=== PATIENT | male | born 1960 | race Caucasian/White ===

== ENCOUNTER → 2016-05-11 | Outpatient (CLI) | payer BC ==
[~2016-05-11] MED LIST: ACETAMINOPHEN325 MG PO; ALBUTEROL MININEB; ASPIRIN EC81 M1 PO; ASPIRIN PO; ASPIRIN325 M1 PO; ASPIRIN81 M1 PO; ASPIRIN81 M2 PO; AZITHROMYCIN250 MG PO; AZITHROMYCIN500 MG PO; COMBIVENT INH14.7 GM INH; COMBIVENT MININEB; COREG PO; DELTASONE20 MG; DUONEB 2.5-0.5 M3 ML NEB; ECOTRIN325 MG PO; FLEXERIL PO; FLEXERIL10 MG PO; FLONASE16 GM; HUMIBID-LA600 MG PO; HYDROCODON-ACE1 EAC1 PO; IMDUR PO; LEVAQUIN750 MG PO; LIPITOR40 MG PO; LISINOPRIL PO; LISINOPRIL5 MG PO; LORTAB 10-5001 EACH PO; LORTAB 5/500 TA1 TA1 PO; METFORMIN HCL1000 M1 PO; NICOTINE TRANSD21 MG EXT; PERCOCET 10/3251 TAB PO; PLAVIX PO; PREDNISONE10 MG PO; PREDNISONE10 MG/DOSE PO; PROAIR HFA8.5 GM INH; PROTONIX PO; ROBAXIN 750750 MG PO; SPIRIVA RESPIMAT4 G1; SYMBICORT 160/4.6 GM INH; SYMBICORT INH; TRICOR PO; TRICOR145 MG PO; ZITHROMAX500 MG PO; ZOCOR80 MG PO; ZYVOX600 MG PO
--- NOTE | ~2016-05-11 | CR63 ---
[facility] A Service of [facility] & [facility] RADIOLOGY TEXT RESULTS PATIENT: CRYSTAL CARR LOCATION: [facility] : 58 UNIT #: [id number] AGE: [address]: Maite Bennett MD SEX: M ORDER DR: [id number] [facility] [address] [place], [place] [address] [id number] O MR#: [id number] Acc #: [id number] NAME: CRYSTAL CARR : 1960 SEX: M STUDY DATE/TIME: 05/11/2016 15:07 UNIT: [facility] ROOM: STUDY DESCRIPTION: CR Chest 2 View Attending Physician: Maite Bennett M.D. Referring Physician: Maite Bennett M.D. Ordering Physician: Maite Bennett M.D. Primary Care Physician: Maite Bennett M.D. MEDICAL IMAGING REPORT This report is preliminary unless electronic signature is present EXAM PA and lateral chest 05/11/2016 COMPARISON 04/22/2016 HISTORY Pneumonia follow-up. Cough, shortness of breath for one month. FINDINGS PA and lateral views of the chest are obtained. The heart size is within normal limits. The vascular pattern of the chest is normal. The interstitial prominence seen on prior studies has resolved. CONCLUSION Clearing pulmonary infiltrates. No active disease. Dictated by... Cameron Hale M.D. THIS IS AN ELECTRONICALLY VERIFIED REPORT Cameron Hale M.D. at 05/12/2016 5:03 PM YANIRA/artie TD: 05/11/2016 18:40 JOB #: [id number] MEDICAL IMAGING REPORT COPY
== END | disposition home or self-care (01) ==
LOC: CRAD 14:58
DX: J18.9 Pneumonia, unspecified organism (principal); R91.8 Other nonspecific abnormal finding of lung field
CPT/HCPCS: 71020

== ENCOUNTER 2016-10-21 12:44 | Emergency (ER) | payer OTHER, BC ==
[~2016-10-21] VITALS: Ht 177.8 cm; Wt 106.1 kg
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
--- NOTE | ~2016-10-21 | EKG ---
PATIENT: CRYSTAL CARR UNIT #: [id number] Ventricular Rate: 75 BPM Atrial Rate: 75 BPM P-R Interval: 166 ms QRS Duration: 90 ms Q-T Interval: 382 ms QTC Calculation(Bezet): 426 ms P [place]: 67 degrees Calculated R [place]: -44 degrees Calculated T [place]: 74 degrees Diagnosis Line: Normal sinus rhythm Diagnosis Line: Left axis deviation Diagnosis Line: Abnormal ECG Diagnosis Line: When compared with ECG of 22-APR-2016 10:25, Diagnosis Line: Minimal criteria for Inferior infarct are no Diagnosis Line: longer Present Diagnosis Line: Confirmed by FELECIA ERICKSON MD ([id number]) on 10/21/2016 Diagnosis Line: 7:27:06 PM INTERPRETING MD: GEORGINA FUENTES
[2016-10-21 14:31] LABS: POC - CKMB 4.2 ng/mL (0.0-7.9); POC - TROPONIN <0.05 ng/mL (<=0.05)
[2016-10-21 14:37] LABS: BASOPHIL# 0.1 X10e3 (0-0.3); BASOPHIL% 0.8 % (0-2.5); EOSINOPHIL# 0.2 X10e3 (0-0.7); EOSINOPHIL% 1.7 % (0.0-7.0); HEMATOCRIT 54.8 % (38.0-50.0); HEMOGLOBIN 18.6 gm/dL (13.0-16.0); LYMPHOCYTE# 2.4 X10e3 (1.0-3.5); LYMPHOCYTE% 20.5 % (17.0-45.0); MEAN CELL VOLUME 94.6 FL (83-96); MEAN CORPUSCULAR HEMOGLOBIN 32.1 PG (28-34); MEAN CORPUSCULAR HGB CONC 33.9 g/dL (30-36); MEAN PLATELET VOLUME 7.7 FL (6.5-11.5); MONOCYTE# 1.2 X10e3 (0-1.0); MONOCYTE% 10.5 % (3.0-12.0); NEUTROPHIL# 7.8 X10e3 (1.5-7.1); NEUTROPHIL% 66.5 % (40-75); PLATELET COUNT 301 X10e3 (140-420); RED BLOOD COUNT 5.79 X10e (3.90-5.60); WHITE BLOOD COUNT 11.7 X10e3 (4.0-10.5)
[2016-10-21 14:40] LABS: DIFF IND NO
[2016-10-21 15:04] LABS: BUN/CREATININE RATIO 16.66; CALCIUM SERUM 9.2 mg/dL (8.4-10.2); CREATININE SERUM 0.9 mg/dL (0.6-1.4); GLOM FILT RATE Estimated 94.5 mL/min (>60); POTASSIUM 4.2 mmol/L (3.5-5.1)
== END 2016-10-21 16:55 | disposition home or self-care (01) ==
LOC: CED 12:44
PROVIDERS: Emergency Medicine
DX: S22.42XA Multiple fractures of ribs, left side, initial encounter for closed fracture (principal); F17.200 Nicotine dependence, unspecified, uncomplicated; Z79.899 Other long term (current) drug therapy; Z79.82 Long term (current) use of aspirin; Z88.8 Allergy status to other drugs, medicaments and biological substances; V49.40XA Driver injured in collision with unspecified motor vehicles in traffic accident, initial encounter
CPT/HCPCS: 36415; 71101; 80048; 82553; 83880; 84484; 85025; 93005; 94640; 96374; 96375; 99284; J2270; J2405